=== PATIENT | male | born 1980 | race Hispanic/Latino ===

== ENCOUNTER 2021-09-11 23:52 | Emergency (ER) | payer MEDICAID ==
[2021-09-12 03:15] LABS: Basophils # (Auto) 0.1 K/mm3 (0.0-0.1); Basophils % (Auto) 1.2 % (0.0-1.8); Eosinophils # (Auto) 0.3 K/mm3 (0.0-0.4); Eosinophils % (Auto) 2.2 % (0.0-4.3); Hematocrit 42.3 % (35.5-45.6); Hemoglobin 14.1 gm/dl (11.8-15.2); Lymphocytes # (Auto) 3.6 K/mm3 (1.2-5.4); Lymphocytes % (Auto) 30.6 % (13.4-35.0); Mean Corpuscular HGB Conc 33 % (32-34); Mean Corpuscular Volume 92 fl (84-94); Monocytes # (Auto) 0.7 K/mm3 (0.0-0.8); Monocytes % (Auto) 5.5 % (0.0-7.3); Platelet Count 198 K/mm3 (140-440); Red Blood Count 4.59 M/mm3 (3.65-5.03); Red Cell Distribution Width 14.4 % (13.2-15.2)
[2021-09-12 03:39] LABS: Alanine Aminotransferase 24 units/L (7-56); Albumin 4.3 g/dL (3.9-5); BUN/Creatinine Ratio 11; Blood Urea Nitrogen 8 mg/dL (9-20); Calcium 9.3 mg/dL (8.4-10.2); Hemolysis Index 29
--- NOTE | 2021-09-12 07:09 | Emergency Department Report ---
ED Psych HPI - General Chief Complaint: Psych Stated Complaint: SI Time Seen by Provider: 09/12/21 00:26 Source: EMS Mode of arrival: Ambulatory - History of Present Illness Initial Comments: This patient has been experiencing suicidal ideation for approximately 2 weeks. And apparently informed EMS that he wanted to cut himself and jump in front of a car. The patient is detoxing from alcohol and drugs for the past 2 weeks. The patient is a deaf mute making it difficult to obtain further history from him. MD Complaint: suicidal ideation - Related Data Previous Rx's Medication Instructions Recorded Last Taken Type Sertraline [Zoloft] 25 mg PO QDAY 30 Days #30 tab 09/14/21 Unknown Rx hydrOXYzine PAMOATE [Vistaril] 25 mg PO Q6HR PRN 30 Days #60 09/14/21 Unknown Rx capsule traZODone [Desyrel] 50 mg PO QHS 30 Days #30 tab 09/14/21 Unknown Rx Allergies Allergy/AdvReac Type Severity Reaction Status Date / Time No Known Allergies Allergy Unverified 09/12/21 00:14 ED Review of Systems ROS: Stated complaint: SI Other details as noted in HPI Comment: All other systems reviewed and negative Psychiatric: suicidal thoughts ED Past Medical Hx - Medications Home Medications: Home Medications Medication Instructions Recorded Confirmed Last Taken Type Sertraline [Zoloft] 25 mg PO QDAY 30 Days #30 tab 09/14/21 Unknown Rx hydrOXYzine PAMOATE [Vistaril] 25 mg PO Q6HR PRN 30 Days #60 09/14/21 Unknown Rx capsule traZODone [Desyrel] 50 mg PO QHS 30 Days #30 tab 09/14/21 Unknown Rx ED Physical Exam - General Limitations: No Limitations, Language Barrier (The patient is a deaf mute) General appearance: alert, in no apparent distress - Head Head exam: Present: atraumatic, normocephalic - Eye Eye exam: Present: normal appearance, PERRL, EOMI - ENT ENT exam: Present: mucous membranes moist - Neck Neck exam: Present: normal inspection. Absent: tenderness - Respiratory Respiratory exam: Present: normal lung sounds bilaterally. Absent: respiratory distress - Cardiovascular Cardiovascular Exam: Present: regular rate, normal rhythm. Absent: systolic murmur, diastolic murmur, rubs, gallop - GI/Abdominal GI/Abdominal exam: Present: soft, normal bowel sounds. Absent: distended, tenderness - Rectal Rectal exam: Present: deferred ED Course Vital Signs 09/11/21 09/12/21 09/12/21 23:57 02:16 02:50 Temperature 98.2 F 97.9 F Pulse Rate 106 H 90 Respiratory 16 18 18 Rate Blood Pressure 124/88 100/70 [Left] O2 Sat by Pulse 98 96 98 Oximetry 09/12/21 09/12/21 09/12/21 10:05 19:35 19:53 Temperature 98.4 F 98.0 F Pulse Rate 82 113 H Respiratory 16 18 18 Rate Blood Pressure 115/84 141/103 [Left] O2 Sat by Pulse 96 100 95 Oximetry 09/13/21 09/13/21 09/13/21 02:01 10:54 12:50 Temperature 97.6 F 98.0 F Pulse Rate 63 98 H Respiratory 16 20 Rate Blood Pressure 96/71 144/100 131/96 [Left] O2 Sat by Pulse 95 98 Oximetry 09/13/21 09/13/21 09/14/21 19:27 19:30 08:53 Temperature 98 F 97.7 F Pulse Rate 79 90 Respiratory 18 20 Rate Blood Pressure 133/94 139/103 [Left] O2 Sat by Pulse 97 100 96 Oximetry ED Medical Decision Making - Lab Data Result diagrams: 09/12/21 03:00 09/12/21 03:00 - Medical Decision Making This patient has been having suicidal ideations per the EMS. The patient how ever has not communicated this information during evaluation. It is felt that he is in need of a mental health evaluation to determine the next step in his care. Critical care attestation.: If time is entered above; I have spent that time in minutes in the direct care of this critically ill patient, excluding procedure time. ED Disposition Clinical Impression: Depression with suicidal ideation Disposition: 01 HOME / SELF CARE / HOMELESS Is pt being admited?: No Condition: Stable Additional Instructions: OUTPATIENT MENTAL HEALTH RESOURCES [facility], [facility] Sameer Duenas MD: [address] [place] [address] [place] [address] [facility]: [facility] [address] [place] [address] [place] [address] [phone] [facility] Healthcare: [address] [facility] [place] [address] [facility] [id number] [facility]: Gregorio Dai MD: [address] [facility] [id number] [facility]: [address] [place] [address] [phone] IN CRISIS AND ACCESS LINE: Prescriptions: traZODone [Desyrel] 50 mg PO QHS 30 Days #30 tab hydrOXYzine PAMOATE [Vistaril] 25 mg PO Q6HR PRN 30 Days #60 capsule PRN Reason: Anxiety Sertraline [Zoloft] 25 mg PO QDAY 30 Days #30 tab Referrals: KEI XIAO MD [Primary Care Provider] - 3-5 Days
--- NOTE | 2021-09-12 10:55 | Consultation ---
History of Present Illness - Reason for Consult Consult date: 09/12/21 Reason for consult: suicidal ideation - History of Present Psychiatric Illness ED Note: This patient has been experiencing suicidal ideation for approximately 2 weeks. And apparently informed EMS that he wanted to cut himself and jump in front of a car. The patient is detoxing from alcohol and drugs for the past 2 weeks. The patient is a deaf mute making it difficult to obtain further history from him. The patient is a 41 year old with history of depression and polysubstance abuse. In my encounter with the patient, he is deaf and assessment was conducted via writing. The patient reports ongoing suicidal ideation for the past 2 and half weeks; he reports plan to cut his wrist. He said he used weed, crack and alcohol last night.The patient denies hallucinations. No withdrawal symptoms reported. PAST PSYCHIATRIC HISTORY Diagnoses: Depression Suicide attempts or Self-harm behavior:Yes Prior psychiatric hospitalizations: Yes Substance Abuse history:Crack Cocaine, [place], Alcohol Previous psychiatric medications tried:Prozac Outpatient treatment: Unknown SOCIAL HISTORY Marital Status: Single Living Arrangements: Homeless Employment Status: Unemployed Access to guns/weapons: Denies Education: 12th grade History of abuse: Denies Legal History: Denies ROS Constitutional: Negative for weight loss EMT: Deaf Respiratory: Negative for cough or hemoptysis All other systems reviewed and are negative MENTAL STATUS EXAMINATION General Appearance: Dressed appropriately. Behavior: Calm and cooperative. Good eye contact. Mood: Depressed Affect:Congruent to stated mood Speech: Normal tone and pace Thought Process: Goal oriented Thought Content: Suicidal Suicidal Ideation: Yes Homicidal Ideation: Denies Hallucinations: Denies Delusions: None elicited Insight and Judgment: Limited Memory/Cognition: Limited Assessment and Plan (1)Major depressive disorder (2) Polysubstance use disorder Treatment Plan 1013 Continue home medications as previously prescribed. Start Zoloft 25mg po daily Start Trazodone 50mg po QHS Start CIWA Risks, benefits and alternatives of medications discussed with the patient, questions answered and consent obtained from patient. PSYCHOTHERAPY: Supportive psychotherapy provided MEDICAL: Per primary team DELIRIUM PRECAUTIONS: Please re-orient patient frequently, keep lights on during the day, and minimize benzodiazepines and opiates as these medications could worsen patient's confusion. FOSTER PARENT: Per primary DISPOSITION: Recommend acute inpatient psychiatric hospitalization at this time. Will follow. Thank you for the consult. Please contact with any questions and/or concerns. Case discussed with Dr. Espino who agrees with current disposition Medications and Allergies Medications and Allergies Allergies Allergy/AdvReac Type Severity Reaction Status Date / Time No Known Allergies Allergy Unverified 09/12/21 00:14 Mental Status Exam - Vital signs Last Vital Signs Temp 98.4 F 09/12/21 10:05 Pulse 82 09/12/21 10:05 Resp 16 09/12/21 10:05 BP 115/84 09/12/21 10:05 Pulse Ox 96 09/12/21 10:05 Results Result Diagrams: 09/12/21 03:00 09/12/21 03:00 Abnormal lab results 09/12/21 09/12/21 09/12/21 Range/Units 03:00 03:00 03:00 WBC 11.8 H (4.5-11.0) K/mm3 Carbon Dioxide 18 L (22-30) mmol/L BUN 8 L (9-20) mg/dL Creatinine 0.7 L (0.8-1.3) mg/dL Glucose 125 H (75-100) mg/dL Salicylates < 0.3 L (2.8-20.0) mg/dL Acetaminophen (10.0-30.0) ug/mL 09/12/21 Range/Units 03:00 WBC (4.5-11.0) K/mm3 Carbon Dioxide (22-30) mmol/L BUN (9-20) mg/dL Creatinine (0.8-1.3) mg/dL Glucose (75-100) mg/dL Salicylates (2.8-20.0) mg/dL Acetaminophen 5.0 L (10.0-30.0) ug/mL All other labs normal.
--- NOTE | 2021-09-12 11:34 | Event Note ---
Date: 09/12/21 No new events overnight. Still awaiting Covid testing for placement to mental health facility
[2021-09-12] MEDS ORDERED: PHENobarbitaL 130 MG/ML VIAL IV PRN (11:53)
[2021-09-12] MEDS ORDERED: chlordiazePOXIDE 25 MG CAP PO PRN ×2 (11:53)
[2021-09-12] MEDS ORDERED: LORazepam 2 MG TAB PO PRN (11:53)
[2021-09-12] MEDS ORDERED: LORazepam 2 MG/ML VIAL IV PRN ×3 (11:53)
[2021-09-12] MEDS: SERTRALINE 25 MG TAB PO SCH (12:06)
[2021-09-12] MEDS: LORazepam 2 MG TAB PO PRN (20:45)
[2021-09-12] MEDS: traZODone 50 MG TAB PO SCH (22:00)
[2021-09-13 08:27] LABS: Bilirubin,Urine NEG (Negative); Blood,Urine SM (Negative); Color,Urine Yellow (Yellow); Mucus,Urine FEW /HPF; Protein,Urine <15 mg/dL mg/dL (Negative); Urobilinogen,Urine < 2.0 mg/dL (<2.0)
[2021-09-13 08:33] LABS: Amphetamine Screen,Urine Negative; Benzodiazepines Screen,Urine Negative; Cannabinoid Screen,Urine Negative; Methadone Screen,Urine Negative; Opiate Screen,Urine Negative
[2021-09-13 08:34] LABS: Calcium Oxalate Crystals,Urine 1+
[2021-09-13 08:52] LABS: Cocaine Screen,Urine Positive
--- NOTE | 2021-09-13 09:50 | Progress Note ---
Subjective - Reason for Consult Consult date: 09/13/21 Reason for consult: SI - Chief Complaint Chief complaint: The patient was seen today. He presents with anxiety and moderate tremors. ROS Constitutional: Negative for weight loss EMT: Deaf Respiratory: Negative for cough or hemoptysis All other systems reviewed and are negative MENTAL STATUS EXAMINATION General Appearance: Dressed appropriately. Behavior: Calm and cooperative. Good eye contact. Mood: Depressed Affect:Congruent to stated mood Speech: Normal tone and pace Thought Process: Goal oriented Thought Content: Suicidal Suicidal Ideation: Yes Homicidal Ideation: Denies Hallucinations: Denies Delusions: None elicited Insight and Judgment: Limited Memory/Cognition: Limited Assessment and Plan (1)Major depressive disorder (2) Polysubstance use disorder Treatment Plan 1013 Continue home medications as previously prescribed. Start Zoloft 25mg po daily Start Trazodone 50mg po QHS Continue CIWA Risks, benefits and alternatives of medications discussed with the patient, questions answered and consent obtained from patient. PSYCHOTHERAPY: Supportive psychotherapy provided MEDICAL: Per primary team DELIRIUM PRECAUTIONS: Please re-orient patient frequently, keep lights on during the day, and minimize benzodiazepines and opiates as these medications could worsen patient's confusion. PLASTICATOR: Per primary DISPOSITION: Recommend acute inpatient psychiatric hospitalization at this time. Will follow. Thank you for the consult. Please contact with any questions and/or concerns. Case discussed with Dr. Espino who agrees with current disposition Medications and Allergies Mental Status Exam - Vital signs Last Vital Signs Temp 97.6 F 09/13/21 02:01 Pulse 63 09/13/21 02:01 Resp 16 09/13/21 02:01 BP 96/71 09/13/21 02:01 Pulse Ox 95 09/13/21 02:01
[2021-09-13] MEDS: SERTRALINE 25 MG TAB PO SCH (10:58)
[2021-09-13] MEDS ORDERED: cloNIDine 0.1 MG TAB PO ONE (11:01)
--- NOTE | 2021-09-13 11:08 | Event Note ---
Date: 09/13/21 vss , BP elevated clonidine given , no events over night awaiting psych transfer
[2021-09-13] MEDS: LORazepam 2 MG TAB PO PRN ×2 (12:56→22:21)
[2021-09-13] MEDS: traZODone 50 MG TAB PO SCH (22:00)
[2021-09-14] MEDS: LORazepam 2 MG TAB PO PRN (08:47)
[2021-09-14 08:55] VITALS: BP 139/103
[2021-09-14] MEDS: SERTRALINE 25 MG TAB PO SCH (10:01)
--- NOTE | 2021-09-14 10:29 | Progress Note ---
Subjective - Reason for Consult Consult date: 09/14/21 Reason for consult: suicidal ideation - Chief Complaint Chief complaint: The patient was seen today. He reports doing well. He presents with mild tremors. He denies any current suicidal/homicidal ideation. ROS Constitutional: Negative for weight loss EMT: Deaf Respiratory: Negative for cough or hemoptysis All other systems reviewed and are negative MENTAL STATUS EXAMINATION General Appearance: Dressed appropriately. Behavior: Calm and cooperative. Good eye contact. Mood: OK Affect:Congruent to stated mood Speech: Normal tone and pace Thought Process: Goal oriented Thought Content: Denies Suicidal Ideation: Denies Homicidal Ideation: Denies Hallucinations: Denies Delusions: None elicited Insight and Judgment: Limited Memory/Cognition: Limited Assessment and Plan (1)Major depressive disorder (2) Polysubstance use disorder Treatment Plan DC 1013 Continue home medications as previously prescribed. Start Zoloft 25mg po daily Start Trazodone 50mg po QHS Start Vistaril 25mg po Every 6 hours PRN for anxiety Risks, benefits and alternatives of medications discussed with the patient, qu estions answered and consent obtained from patient. PSYCHOTHERAPY: Supportive psychotherapy provided MEDICAL: Per primary team DELIRIUM PRECAUTIONS: Please re-orient patient frequently, keep lights on during the day, and minimize benzodiazepines and opiates as these medications could worsen patient's confusion. BAR PORTER: Per primary DISPOSITION: Do not recommend acute inpatient psychiatric hospitalization at this time. Nurse Intern will provide patient with psychiatric outpatient resources. Will sign off. Thank you for the consult. Please contact with any questions and/or concerns. Case discussed with Dr. Espino who agrees with current disposition Medications and Allergies Mental Status Exam - Vital signs Last Vital Signs Temp 97.7 F 09/14/21 08:53 Pulse 90 09/14/21 08:53 Resp 20 09/14/21 08:53 BP 139/103 09/14/21 08:53 Pulse Ox 96 09/14/21 08:53
--- NOTE | 2021-09-14 11:09 | Event Note ---
Date: 09/14/21 vss , medically cleared assessed by psych , recommends OP management
== END 2021-09-14 14:45 | disposition home or self-care (01) ==
LOC: ED 23:52
DX: R45.851 Suicidal ideations (principal); F32.A Depression, unspecified; Z20.822 Contact with and (suspected) exposure to COVID-19
CPT/HCPCS: 36415; 80048; 80053; 80307; 81001; 85025; 87086; 99284; U0003; 80320; G0480